=== PATIENT | female | born 1930 | race Asian ===

== ENCOUNTER 2017-12-19 16:01 | Emergency (ER) | payer MEDICARE, OTHER ==
[~2017-12-19] VITALS: Ht 152.4 cm; Wt 47.2 kg
[2017-12-19] MEDS ORDERED: LIDOCAINE-MPF 1%, 5ML ONE (16:21)
[2017-12-19] MEDS ORDERED: DIPH,PERTUSS(ACELL),TET VAC/PF 0.5 ML IM-VACC ONE ×2 (16:22→16:30)
[2017-12-19] MEDS ORDERED: LIDOCAINE-MPF 1%, 5ML INFIL ONE (16:30)
[2017-12-19] MEDS ORDERED: BISO5TAB2 PO (16:45)
[2017-12-19] MEDS ORDERED: FURO20TA3 PO (16:45)
[2017-12-19] MEDS ORDERED: LISI-170 PO (16:45)
[2017-12-19] MEDS ORDERED: ATOR10TA9 PO (16:45)
[2017-12-19] MEDS ORDERED: AMLO5TAB2 PO (16:45)
[2017-12-19] MEDS ORDERED: OMEP-110 PO (16:45)
[2017-12-19] MEDS ORDERED: BUDE10.2 INH (16:45)
[2017-12-19] MEDS ORDERED: MORPHINE SULFATE 4 MG/ML, 1ML IVPush PRN (17:00)
[2017-12-19] MEDS ORDERED: SODIUM CHLORIDE FLUSH 10ML SYR IVF ONE (17:00)
[2017-12-19] MEDS ORDERED: ONDANSETRON ODT 4 MG PO ONE (17:00)
[2017-12-19 17:03] LABS: BASOPHILS # (AUTO) 0.02 x10^3/uL (0-0.1); BASOPHILS % (AUTO) 0 % (0-1); EOSINOPHILS # (AUTO) 0.03 x10^3/uL (0-0.4); EOSINOPHILS % (AUTO) 0 % (1-7); LYMPHOCYTES # (AUTO) 1.28 x10^3/uL (1-3.4); LYMPHOCYTES % (AUTO) 14 % (22-44); MD NO; MEAN CORPUSCULAR HEMOGLOBIN 31.7 pg (27.0-34.8); MEAN CORPUSCULAR HGB CONC 34.1 g/dL (32.4-35.8); MEAN CORPUSCULAR VOLUME 92.9 fL (80-100); MEAN PLATELET VOLUME 8.1 fL (7.4-10.4); MONOCYTES % (AUTO) 4 % (2-9); NEUTROPHILS # (AUTO) 7.64 x10^3/uL (1.8-6.8); NEUTROPHILS % (AUTO) 82 % (42-75); PLATELET COUNT 234 x10^3/uL (130-400); RED BLOOD COUNT 4.27 x10^6/uL (3.82-5.3); RED CELL DISTRIBUTION WIDTH 13.3 % (9.6-15.2)
[2017-12-19 17:08] LABS: INTERNATIONAL NORMALIZED RATIO 1.05 (0.93-1.1); PROTHROMBIN TIME 10.9 Seconds (9.6-11.5)
[2017-12-19 17:12] LABS: ALBUMIN 3.3 g/dL (3.4-5.0); ANION GAP 9 mmol/L (5-15); CALCIUM 8.5 mg/dL (8.5-10.1); CHLORIDE 108 mmol/L (98-107)
[2017-12-19 17:15] LABS: ALANINE AMINOTRANSFERASE 16 U/L (12-78); ALKALINE PHOSPHATASE 73 U/L (45-117); BILIRUBIN,TOTAL 0.4 mg/dL (0.2-1.0); CREATININE 0.96 mg/dL (0.55-1.02); TOTAL PROTEIN 7.3 g/dL (6.4-8.2)
[2017-12-19] MEDS ORDERED: PROPOFOL 10 MG/ML, 20ML ONE (18:13)
[2017-12-19] MEDS ORDERED: BACITRACIN ZINC OINT 500U/GM, 0.9 GM ONE (18:44)
[2017-12-19 20:53] VITALS: BP 142/78
== END 2017-12-19 20:59 | disposition home or self-care (01) ==
LOC: ED 19:00
DX: S52.501A Unspecified fracture of the lower end of right radius, initial encounter for closed fracture (principal); S52.601A Unspecified fracture of lower end of right ulna, initial encounter for closed fracture; S81.011A Laceration without foreign body, right knee, initial encounter; K21.9 Gastro-esophageal reflux disease without esophagitis; E78.00 Pure hypercholesterolemia, unspecified; F17.200 Nicotine dependence, unspecified, uncomplicated; J44.9 Chronic obstructive pulmonary disease, unspecified; I50.9 Heart failure, unspecified; I11.0 Hypertensive heart disease with heart failure; Z79.82 Long term (current) use of aspirin; W01.0XXA Fall on same level from slipping, tripping and stumbling without subsequent striking against object, initial encounter; Y93.89 Activity, other specified; Y92.009 Unspecified place in unspecified non-institutional (private) residence as the place of occurrence of the external cause; Y99.8 Other external cause status
CPT/HCPCS: 12002; 36415; 71045; 80053; 85025; 85610; 90471; 90715; 93005; 99152; 99153

== ENCOUNTER 2021-03-01 11:57 | Emergency (ER) | payer MEDICARE, OTHER ==
[~2021-03-01] VITALS: Ht 149.9 cm; Wt 51.3 kg
[~2021-03-01 11:57] MED LIST: AMLO-150 PO; ASPI-430 PO; ATOR10TA9 PO; BISO5TAB8 PO; BUDE10.2 INH; ESCI10TA10 PO; FURO20TA3 PO; LISI-170 PO; METH4TAB2 PO; OMEP-110 PO
--- NOTE | 2021-03-01 12:46 | NUR ---
PT TO ROOM 24 W/ C/O DIARRHEA X 3 DAYS. DENIES ANY RECENT USE OF ABX. PT DENIES ANY ABD PAIN. DENIES N/V. MUCOUS MEMBRANES MOIST. PT AWAKE AND ALERT. PT RESTING ON GURNEY. NADN. MONITORS APPLIED. VSS. WARM BLANKET PROVIDED. CALL LIGHT IN REACH. FAMILY AT BEDSIDE.
--- NOTE | 2021-03-01 13:16 | NUR ---
PT AND FAMILY AWARE OF NEED FOR STOOL SAMPLE. COMMODE W/ HAT LEFT AT BEDSIDE. PT TAKEN TO XR. AWARE OF STRAIGHT CATH UA WHEN PT RETURNS AND IS AGREEABLE.
[2021-03-01 13:25] LABS: BASOPHILS % (AUTO) 1 % (0-1); EOSINOPHILS % (AUTO) 1 % (1-7); LYMPHOCYTES % (AUTO) 31 % (22-44); MEAN CORPUSCULAR HEMOGLOBIN 31.1 pg (27.0-34.8); MEAN CORPUSCULAR HGB CONC 34.2 g/dL (32.4-35.8); MEAN PLATELET VOLUME 8.7 fL (7.4-10.4); MONOCYTES % (AUTO) 7 % (2-9); NEUTROPHILS % (AUTO) 61 % (42-75); PLATELET COUNT 162 x10^3/uL (130-400); RED BLOOD COUNT 4.74 x10^6/uL (3.82-5.3); RED CELL DISTRIBUTION WIDTH 13.6 % (9.6-15.2)
[2021-03-01 13:32] LABS: ALANINE AMINOTRANSFERASE 19 U/L (12-78); ALBUMIN 3.4 g/dL (3.4-5.0); ANION GAP 7 mmol/L (5-15); CHLORIDE 109 mmol/L (98-107); CREATININE 0.93 mg/dL (0.55-1.02)
[2021-03-01 13:34] LABS: ALKALINE PHOSPHATASE 56 U/L (45-117); BILIRUBIN,TOTAL 0.6 mg/dL (0.2-1.0)
--- NOTE | 2021-03-01 13:40 | NUR ---
PT DIANA SMALLWOOD'D. PT ALLISON WELL. NOTIFIED AGAIN OF NEED FOR STOOL SAMPLE. PT VERBALIZES UNDERSTANDING. STATES UNABLE TO PROVIDE STOOL SAMPLE AT THIS TIME.
[2021-03-01 13:52] LABS: MICROSCOPIC AUTO
[2021-03-01 13:59] VITALS: BP 179/91
--- NOTE | 2021-03-01 14:02 | NUR ---
PT RESTING ON GURNEY. NADN. ALMAGUER.
--- NOTE | 2021-03-01 14:09 | NUR ---
PT UNABLE TO PROVIDE STOOL SAMPLE. ALL OTHER RESULTS BACK. PT PLACED FOR RECHECK.
== END 2021-03-01 14:34 | disposition home or self-care (01) ==
LOC: ED 14:31
DX: N30.00 Acute cystitis without hematuria (principal); R19.7 Diarrhea, unspecified; I11.0 Hypertensive heart disease with heart failure; I50.9 Heart failure, unspecified; E78.00 Pure hypercholesterolemia, unspecified; K21.9 Gastro-esophageal reflux disease without esophagitis; Z86.73 Personal history of transient ischemic attack (TIA), and cerebral infarction without residual deficits; Z88.0 Allergy status to penicillin; Z87.891 Personal history of nicotine dependence; Z90.710 Acquired absence of both cervix and uterus
CPT/HCPCS: 36415; 74021; 80053; 81001; 83690; 85025; 87077; 87086; 87186; 99284